=== PATIENT | female | born 1955 | race Caucasian/White ===

== ENCOUNTER 2021-02-04 18:54 | Emergency (ER) | payer MEDICARE, OTHER ==
[~2021-02-04] VITALS: Ht 167.6 cm; Wt 110.5 kg
[~2021-02-04 18:54] MED LIST: LISI10TA27 PO; RIVA20TA PO; SIMV40TA PO; SOTA80TA PO
[2021-02-04 20:35] LABS: CLARITY,URINE CLOUDY (Clear); COLOR,URINE RED (Yellow); GLUCOSE, URINE NEGATIVE (Neg); KETONES,URINE NEGATIVE (Neg); PROTEIN,URINE 30 mg/dl (Neg); UA COLLECTION TYPE CLN CATCH MIDSTREAM
[2021-02-04 20:36] LABS: LEUKOCYTE ESTERASE ,URINE NEGATIVE (Neg); NITRITES, URINE NEGATIVE (Neg); OCCULT BLOOD,URINE LARGE (Neg); UROBILINOGEN,URINE 0.2 E.U/dL (0.2-1.0)
[2021-02-04 21:15] LABS: BACTERIA,URINE FEW /HPF (Neg); MUCUS STRANDS NONE SEEN /LPF (Neg); RBC,URINE TNTC /HPF (0-2); SQUAMOUS EPITHELIAL CELL,UR FEW /LPF (FEW); WBC,URINE 0-4 /HPF (0-4)
[2021-02-04 23:23] LABS: PARTIAL THROMBOPLASTIN TIME 26 SECONDS (22-32)
[2021-02-04 23:24] LABS: ALANINE AMINOTRANSFERASE 22 U/L (12-78); ALBUMIN 3.4 G/DL (3.4-5.0); ALBUMIN/GLOBULIN RATIO 0.9 (1.1-1.5); ALKALINE PHOSPHATASE 62 IU/L (46-116); ANION GAP 8 (8-16); ASPARTATE AMINO TRANSFERASE 15 U/L (10-37); BILIRUBIN,TOTAL 0.5 MG/DL (0.1-1.0); BLOOD UREA NITROGEN 11 MG/DL (7-18); BUN/CREATININE RATIO 13.6 (6.6-38.0); CALCIUM 8.5 MG/DL (8.5-10.1); CHLORIDE 110 MMOL/L (99-107); CREATININE 0.81 MG/DL (0.40-0.90); GLUCOSE 94 MG/DL (70-104); POTASSIUM 4.1 MMOL/L (3.5-5.1); SODIUM 147 MMOL/L (135-145); TOTAL CARBON DIOXIDE 28.7 MMOL/L (24-32); eGFR 71 ML/MIN
[2021-02-04 23:27] LABS: HEMOGLOBIN 14.6 g/dl (12.0-16.0); PLATELET COUNT 224 X10'3 (140-440); RED BLOOD COUNT 4.77 X10'6 (4.20-5.60)
[2021-02-04 23:29] LABS: BASOPHILS # (AUTO) 0.1 X10'3 (0-0.2); BASOPHILS % (AUTO) 0.9 % (0-1); EOSINOPHILS # (AUTO) 0.1 X10'3 (0-0.9); EOSINOPHILS % (AUTO) 1.8 % (0-6); HEMATOCRIT 43.4 % (35.0-45.0); LYMPHOCYTES # (AUTO) 2.2 X10'3 (1.1-4.8); LYMPHOCYTES % (AUTO) 29.1 % (21-51); MEAN CORPUSCULAR HEMOGLOBIN 30.7 PG (27.0-31.0); MEAN CORPUSCULAR HGB CONC 33.7 g/dL (33.0-36.5); MEAN PLATELET VOLUME 9.1 FL (7.4-10.4); MONOCYTES # (AUTO) 0.6 X10'3 (0-0.9); MONOCYTES % (AUTO) 7.6 % (2-12); NEUTROPHILS # (AUTO) 4.6 X10'3 (1.8-7.7); NEUTROPHILS % (AUTO) 60.6 % (42-75); WHITE BLOOD COUNT 7.5 X10'3 (4.5-11.0)
[2021-02-04 23:46] VITALS: BP 181/76
== END 2021-02-04 23:47 | disposition home or self-care (01) ==
LOC: ER 18:54
DX: R31.9 Hematuria, unspecified (principal); I48.91 Unspecified atrial fibrillation; E78.00 Pure hypercholesterolemia, unspecified; Z90.49 Acquired absence of other specified parts of digestive tract; Z98.51 Tubal ligation status; Z90.89 Acquired absence of other organs; Z98.890 Other specified postprocedural states; Z88.1 Allergy status to other antibiotic agents; Z88.5 Allergy status to narcotic agent; Z79.899 Other long term (current) drug therapy
CPT/HCPCS: 80053; 81001; 85025; 85610; 85730; 99283

== ENCOUNTER 2022-05-26 22:07 | Inpatient (IN) | payer MEDICARE, OTHER ==
[~2022-05-26] VITALS: Ht 167.6 cm; Wt 98.3 kg
[~2022-05-26 22:07] MED LIST changes: +SIMV-343 PO; -SIMV40TA PO
[2022-05-26 22:27] LABS: EOSINOPHILS # (AUTO) 0.2 X10'3 (0-0.9); MEAN CORPUSCULAR HEMOGLOBIN 30.5 PG (27.0-31.0); MONOCYTES # (AUTO) 0.7 X10'3 (0-0.9); PLATELET COUNT 249 X10'3 (140-440); RED BLOOD COUNT 4.97 X10'6 (4.20-5.60); RED CELL DISTRIBUTION WIDTH 13.2 % (11.5-14.5)
[2022-05-26 22:28] LABS: BASOPHILS # (AUTO) 0.1 X10'3 (0-0.2); BASOPHILS % (AUTO) 1.2 % (0-1); HEMATOCRIT 45.3 % (35.0-45.0); HEMOGLOBIN 15.1 g/dl (12.0-16.0); LYMPHOCYTES # (AUTO) 2.4 X10'3 (1.1-4.8); LYMPHOCYTES % (AUTO) 30.9 % (21-51); MEAN CORPUSCULAR HGB CONC 33.4 g/dL (33.0-36.5); MEAN CORPUSCULAR VOLUME 91.2 FL (78-98); MEAN PLATELET VOLUME 8.1 FL (7.4-10.4); MONOCYTES % (AUTO) 8.9 % (2-12); NEUTROPHILS # (AUTO) 4.5 X10'3 (1.8-7.7); WHITE BLOOD COUNT 7.9 X10'3 (4.5-11.0)
[2022-05-26 22:44] LABS: ALANINE AMINOTRANSFERASE 26 U/L (12-78); ALBUMIN 3.6 G/DL (3.4-5.0); ALKALINE PHOSPHATASE 64 IU/L (46-116); ANION GAP 8 (8-16); ASPARTATE AMINO TRANSFERASE 19 U/L (10-37); BILIRUBIN,TOTAL 0.6 MG/DL (0.1-1.0); BLOOD UREA NITROGEN 11 MG/DL (7-18); BUN/CREATININE RATIO 12.6 (6.6-38.0); CALCIUM 9.2 MG/DL (8.5-10.1); CHLORIDE 103 MMOL/L (99-107); CREATININE 0.87 MG/DL (0.40-0.90); GLUCOSE 113 MG/DL (70-104); MAGNESIUM 1.8 MG/DL (1.5-2.4); POTASSIUM 3.7 MMOL/L (3.5-5.1); SODIUM 142 MMOL/L (135-145); TOTAL CARBON DIOXIDE 31.4 MMOL/L (24-32); TOTAL PROTEIN 7.1 G/DL (6.4-8.2); eGFR 65 ML/MIN
[2022-05-27] VITALS (10 sets, daily range): BP systolic 112–137; BP diastolic 38–64
[2022-05-27] MEDS ORDERED: AMLO-140 PO (00:59)
[2022-05-27] MEDS ORDERED: HYDR25TA4 PO (01:00)
[2022-05-27] MEDS ORDERED: SOTA80TA73 PO ×2 (01:02→16:08)
[2022-05-27] MEDS ORDERED: potassium Cl 40MEQ/1/2NS 520ml 520 ML IV PRN (01:15)
[2022-05-27] MEDS ORDERED: magnesium 4gm in 100ml NS 100 ML IV PRN (01:15)
[2022-05-27] MEDS ORDERED: ondansetron/PF 4mg/2ml inj IV PRN (01:15)
[2022-05-27] MEDS ORDERED: aspirin 325mg tablet PO ONE (01:15)
[2022-05-27] MEDS ORDERED: magnesium Cl slow-release 64mg tablet PO PRN (01:15)
[2022-05-27] MEDS: normal saline 1000ml 1,000 ML IV SCH ×2 (01:15→11:15)
[2022-05-27] MEDS ORDERED: potassium Cl 20 mEq SR tablet PO PRN ×2 (01:15)
[2022-05-27] MEDS ORDERED: acetaminophen 325mg tablet PO PRN ×2 (01:15)
[2022-05-27] MEDS ORDERED: CefTRIAXone 2gm/D5W 50ml BAG 50 ML IV SCH (02:00)
--- NOTE | 2022-05-27 03:13 | NUR ---
Report called to Ophelia on PCU, patient cleared for transport to receiving unit.
--- NOTE | 2022-05-27 03:55 | NUR ---
arrived to [facility] walked from [facility] to bed with assist of one.
[2022-05-27] MEDS ORDERED: AMLO5TAB PO (04:46)
--- NOTE | 2022-05-27 05:00 | NUR ---
Received from ER in stable condition trops low. Pt.is NPO for Lexiscan in am. Peripheral IV SL intact.
--- NOTE | 2022-05-27 06:34 | NUR ---
Patient in room PCU 3012. I have received report from SYLVIA Jacinto and had the opportunity to ask questions and assume patient care.
[2022-05-27] MEDS ORDERED: HYDROchlorothiazide 25mg tablet PO SCH (08:00)
[2022-05-27] MEDS ORDERED: heparin, porcine 5000 units/ml vial SQ SCH (08:00)
[2022-05-27] MEDS ORDERED: lisinopril 10 MG tablet PO SCH (08:00)
[2022-05-27] MEDS ORDERED: sotalol 80mg tablet PO SCH (08:00)
[2022-05-27] MEDS ORDERED: regadenoson 0.4mg/5ml syringe IV PRN (11:00)
[2022-05-27] MEDS ORDERED: nitroGLYCERIN 0.4mg SUBLingual tab SL PRN (11:00)
[2022-05-27] MEDS ORDERED: metoprolol tartrate 1mg/ml inj IV PRN (11:00)
[2022-05-27] MEDS ORDERED: aminophylline 250mg/10ml inj. IV PRN (11:00)
--- NOTE | 2022-05-27 12:24 | NUR ---
PAGER ID: [phone] MESSAGE: Loyda [id number] RE: Jeanie Spicer room 3012C - Pt back from [facility]. Can she eat now?
--- NOTE | 2022-05-27 12:34 | NUR ---
Notified CM that PT recommends 4WW for discharge. PT will also put that in their notes.
[2022-05-27] MEDS ORDERED: cephalexin 500mg capsule PO SCH (13:00)
--- NOTE | 2022-05-27 15:06 | NUR ---
PAGER ID: [phone] MESSAGE: [id number] [phone] RE: Jeanie Spicer room 301 - Ghada scan resulted. Patient says she needs to eat and can't wait any longer
[2022-05-27] MEDS ORDERED: AMLO10TA53 PO (16:08)
[2022-05-27] MEDS ORDERED: CEPH-585 PO (16:08)
--- NOTE | 2022-05-27 16:38 | NUR ---
PAGER ID: [phone] MESSAGE: Loyda [phone] RE: Jeanie Spicer room 3012CD - takes 40mg Sotalol BID
--- NOTE | 2022-05-27 17:50 | NUR ---
Patient left at 1750 with instructions, verbalizing understanding of instructions, in wheelchair accompanied by nursing staff and family going home via private vehicle. All lines and tubes including PIV with cannula intact and tele monitor have been removed. Education has been provided at bedside and all questions have been answered. Patient was educated that she needs to follow up with Dr. Vazquez her clinical research scientist. Patient verbalizing understanding of instructions. Patient is stable and appropriate for discharge.
[2022-05-27] MEDS ORDERED: rivaroxaban 20mg tablet PO SCH (18:00)
[2022-05-27] MEDS ORDERED: amLODIPine 5mg tablet PO SCH (21:00)
[2022-05-27] MEDS ORDERED: temazepam 15mg capsule PO PRN (21:00)
[2022-05-27] MEDS ORDERED: atorvastatin 20mg tablet PO SCH (21:00)
== END 2022-05-27 17:47 | disposition home or self-care (01) | DRG 311 ==
LOC: ER 22:09 → ED HOLD 05-27 01:21 → UNDOADMIN 05-27 02:16 → ED HOLD 05-27 04:02 → PCU 3S 05-27 04:02 → UNDODISIN 05-27 17:47
PROVIDERS: ADMIT Internal Medicine; ATTEND Family Medicine
PROC: 4A02XM4 Measurement of Cardiac Total Activity, External Approach (ICD-10-PCS; principal; 2022-05-27)
PROC: 3E033HZ Introduction of Radioactive Substance into Peripheral Vein, Percutaneous Approach (ICD-10-PCS; 2022-05-27)
DX: I20.9 Angina pectoris, unspecified (principal); I48.20 Chronic atrial fibrillation, unspecified; E78.00 Pure hypercholesterolemia, unspecified; F17.210 Nicotine dependence, cigarettes, uncomplicated; G47.33 Obstructive sleep apnea (adult) (pediatric); R05.3 Chronic cough; I88.9 Nonspecific lymphadenitis, unspecified; E66.9 Obesity, unspecified; I10 Essential (primary) hypertension; T46.4X5A Adverse effect of angiotensin-converting-enzyme inhibitors, initial encounter; Y92.89 Other specified places as the place of occurrence of the external cause; Z79.01 Long term (current) use of anticoagulants; Z79.899 Other long term (current) drug therapy; Z88.5 Allergy status to narcotic agent; Z88.8 Allergy status to other drugs, medicaments and biological substances; Z90.49 Acquired absence of other specified parts of digestive tract; Z98.51 Tubal ligation status; Z68.35 Body mass index [BMI] 35.0-35.9, adult; Z71.6 Tobacco abuse counseling
CPT/HCPCS: 36415; 78452; 80053; 83605; 83735; 83880; 84439; 84443; 84484; 85025; 87040; 87081; 93005; 93017; 93306; 99285; A6449; A9500; G0378; J0696; J2785; J7030

== ENCOUNTER 2023-05-15 17:53 | Inpatient (IN) | payer MEDICARE, OTHER ==
[~2023-05-15] VITALS: Ht 165.1 cm; Wt 116.4 kg
[~2023-05-15 17:53] MED LIST changes: +AMLO10TA53 PO; +CEPH-585 PO; -LISI10TA27 PO; -SOTA80TA PO; +SOTA80TA73 PO
[2023-05-15 18:27] LABS: BASOPHILS # (AUTO) 0.1 X10'3 (0-0.2); BASOPHILS % (AUTO) 1.2 % (0-1); EOSINOPHILS # (AUTO) 0.1 X10'3 (0-0.9); EOSINOPHILS % (AUTO) 1.3 % (0-6); HEMATOCRIT 39.2 % (35.0-45.0); LYMPHOCYTES # (AUTO) 1.1 X10'3 (1.1-4.8); LYMPHOCYTES % (AUTO) 18.1 % (21-51); MEAN CORPUSCULAR HEMOGLOBIN 29.5 PG (27.0-31.0); MEAN CORPUSCULAR HGB CONC 33.2 g/dL (33.0-36.5); MEAN CORPUSCULAR VOLUME 88.7 FL (78-98); MEAN PLATELET VOLUME 9.3 FL (7.4-10.4); MONOCYTES # (AUTO) 0.8 X10'3 (0-0.9); MONOCYTES % (AUTO) 12.2 % (2-12); NEUTROPHILS # (AUTO) 4.3 X10'3 (1.8-7.7); NEUTROPHILS % (AUTO) 67.2 % (42-75); PLATELET COUNT 215 X10'3 (140-440); RED BLOOD COUNT 4.42 X10'6 (4.20-5.60); WHITE BLOOD COUNT 6.3 X10'3 (4.5-11.0)
[2023-05-15 18:47] LABS: ALANINE AMINOTRANSFERASE 20 U/L (12-78); ALBUMIN 3.3 G/DL (3.4-5.0); ALKALINE PHOSPHATASE 53 IU/L (46-116); ANION GAP 9 (8-16); ASPARTATE AMINO TRANSFERASE 13 U/L (10-37); BILIRUBIN,TOTAL 0.6 MG/DL (0.1-1.0); BLOOD UREA NITROGEN 6 MG/DL (7-18); BUN/CREATININE RATIO 7.3 (10.0-20.0); CHLORIDE 106 MMOL/L (99-107); CREATININE 0.82 MG/DL (0.40-0.90); GLUCOSE 127 MG/DL (70-104); POTASSIUM 3.5 MMOL/L (3.5-5.1); SODIUM 142 MMOL/L (135-145); TOTAL CARBON DIOXIDE 27.4 MMOL/L (24-32); TOTAL PROTEIN 6.7 G/DL (6.4-8.2); eCRCL 60 ML/MIN; eGFR 70 ML/MIN
[2023-05-15 18:54] LABS: PRO BRAIN NATRIURETIC PEPTIDE 208 PG/ML (0-125)
[2023-05-15] MEDS: methylPREDNISolone sod succ 125mg/2ml vial IV ONE (20:08)
[2023-05-15] MEDS ORDERED: magnesium 4gm in 100ml NS 100 ML IV PRN (20:35)
[2023-05-15] MEDS ORDERED: magnesium 2GM in 50ml NS 50 ML IV PRN (20:35)
[2023-05-15] MEDS ORDERED: potassium Cl 40MEQ/1/2NS 520ml 520 ML IV PRN (20:35)
[2023-05-15] MEDS ORDERED: magnesium hydroxide 30ml (MOM) UD suspension PO PRN (20:35)
[2023-05-15] MEDS ORDERED: mag hydrox/Alum hydrox/simeth 30ml oral suspension PO PRN (20:35)
[2023-05-15] MEDS ORDERED: acetaminophen 325mg tablet PO PRN (20:35)
[2023-05-15] MEDS ORDERED: magnesium Cl slow-release 64mg tablet PO PRN (20:35)
[2023-05-15] MEDS ORDERED: ondansetron/PF 4mg/2ml inj IV PRN (20:35)
[2023-05-15] MEDS ORDERED: potassium Cl 20 mEq SR tablet PO PRN ×2 (20:35)
[2023-05-15 20:41] LABS: MONOTEST NEGATIVE (Neg)
[2023-05-15] MEDS: ipratropium/albuterol 3ml nebule NEB ONE (21:29)
[2023-05-15 21:39] VITALS: PULSE 78; RESP 16; O2SAT 94
[2023-05-15 21:47] VITALS: PULSE 74; RESP 16; O2SAT 92
[2023-05-15 23:47] VITALS: PULSE 76; RESP 20; O2SAT 90
[2023-05-15] MEDS: ipratropium/albuterol 3ml nebule NEB SCH (23:47)
[2023-05-16] VITALS (19 sets, daily range): BP systolic 130–146; BP diastolic 60–85; PULSE 61–102; RESP 16–26; TEMP 97–98.2; O2SAT 91–95
[2023-05-16] MEDS: docusate sod 100mg capsule PO SCH (07:10)
[2023-05-16] MEDS: heparin, porcine 5000 units/ml vial SQ SCH (07:11)
[2023-05-16] MEDS: methylPREDNISolone sod succ/PF 40mg inj. IV SCH ×2 (07:17→20:31)
[2023-05-16] MEDS: K and/or MAG REPLACEMENT MC SCH (08:00)
[2023-05-16 08:19] LABS: EOSINOPHILS % (AUTO) 0 % (0-6); HEMATOCRIT 39.8 % (35.0-45.0); HEMOGLOBIN 13.1 g/dl (12.0-16.0); LYMPHOCYTES # (AUTO) 0.7 X10'3 (1.1-4.8); LYMPHOCYTES % (AUTO) 19.5 % (21-51); MEAN CORPUSCULAR HEMOGLOBIN 29.7 PG (27.0-31.0); MEAN CORPUSCULAR VOLUME 90.1 FL (78-98); MEAN PLATELET VOLUME 9.4 FL (7.4-10.4); MONOCYTES % (AUTO) 1.3 % (2-12); NEUTROPHILS # (AUTO) 2.9 X10'3 (1.8-7.7); NEUTROPHILS % (AUTO) 78.2 % (42-75); PLATELET COUNT 218 X10'3 (140-440); RED BLOOD COUNT 4.42 X10'6 (4.20-5.60); RED CELL DISTRIBUTION WIDTH 15.1 % (11.5-14.5); WHITE BLOOD COUNT 3.8 X10'3 (4.5-11.0)
[2023-05-16 08:39] LABS: ALANINE AMINOTRANSFERASE 19 U/L (12-78); ALBUMIN 3.2 G/DL (3.4-5.0); ALBUMIN/GLOBULIN RATIO 0.7 (1.1-1.5); ALKALINE PHOSPHATASE 54 IU/L (46-116); ANION GAP 11 (8-16); ASPARTATE AMINO TRANSFERASE 15 U/L (10-37); BILIRUBIN,TOTAL 0.4 MG/DL (0.1-1.0); BLOOD UREA NITROGEN 10 MG/DL (7-18); BUN/CREATININE RATIO 10.6 (10.0-20.0); CALCIUM 8.1 MG/DL (8.5-10.1); CHLORIDE 104 MMOL/L (99-107); CREATININE 0.94 MG/DL (0.40-0.90); GLUCOSE 188 MG/DL (70-104); POTASSIUM 3.8 MMOL/L (3.5-5.1); SODIUM 139 MMOL/L (135-145); TOTAL CARBON DIOXIDE 23.8 MMOL/L (24-32); TOTAL PROTEIN 7.6 G/DL (6.4-8.2); eCRCL 52 ML/MIN; eGFR 59 ML/MIN
[2023-05-16] MEDS: levoFLOXACIN-Levaquin 500mg/D5 100 ML IV SCH (10:41)
[2023-05-16] MEDS ORDERED: ipratropium/albuterol 3ml nebule NEB PRN (17:40)
[2023-05-16] MEDS: furosemide 40mg/4ml inj IV SCH (17:59)
[2023-05-16] MEDS: rivaroxaban 20mg tablet PO SCH (17:59)
[2023-05-16] MEDS ORDERED: LISI20TA28 PO (18:15)
[2023-05-16] MEDS ORDERED: HYDR25TA90 PO (18:15)
[2023-05-16] MEDS ORDERED: methylPREDNISolone sod succ/PF 40mg inj. IV SCH (20:00)
[2023-05-16] MEDS: sotalol 80mg tablet PO SCH (20:31)
[2023-05-16] MEDS: atorvastatin 20mg tablet PO SCH (20:31)
[2023-05-17] VITALS (22 sets, daily range): BP systolic 113–156; BP diastolic 42–69; PULSE 61–82; RESP 14–23; TEMP 97.3–98.8; O2SAT 84–98
[2023-05-17] MEDS: amLODIPine 5mg tablet PO SCH (07:28)
[2023-05-17 07:54] LABS: BASOPHILS % (AUTO) 0.3 % (0-1); EOSINOPHILS % (AUTO) 0 % (0-6); HEMATOCRIT 38.5 % (35.0-45.0); HEMOGLOBIN 12.6 g/dl (12.0-16.0); LYMPHOCYTES % (AUTO) 8.4 % (21-51); MEAN CORPUSCULAR HEMOGLOBIN 29.2 PG (27.0-31.0); MEAN CORPUSCULAR HGB CONC 32.7 g/dL (33.0-36.5); MEAN CORPUSCULAR VOLUME 89.3 FL (78-98); MEAN PLATELET VOLUME 9.5 FL (7.4-10.4); MONOCYTES # (AUTO) 0.4 X10'3 (0-0.9); MONOCYTES % (AUTO) 3.2 % (2-12); NEUTROPHILS % (AUTO) 88.1 % (42-75); PLATELET COUNT 237 X10'3 (140-440); RED BLOOD COUNT 4.31 X10'6 (4.20-5.60); RED CELL DISTRIBUTION WIDTH 15.1 % (11.5-14.5); WHITE BLOOD COUNT 11.3 X10'3 (4.5-11.0)
[2023-05-17 08:03] LABS: ALANINE AMINOTRANSFERASE 17 U/L (12-78); ALBUMIN/GLOBULIN RATIO 0.9 (1.1-1.5); ALKALINE PHOSPHATASE 48 IU/L (46-116); ANION GAP 7 (8-16); ASPARTATE AMINO TRANSFERASE 16 U/L (10-37); BILIRUBIN,TOTAL 0.3 MG/DL (0.1-1.0); BLOOD UREA NITROGEN 16 MG/DL (7-18); BUN/CREATININE RATIO 19.3 (10.0-20.0); CALCIUM 8.1 MG/DL (8.5-10.1); CHLORIDE 104 MMOL/L (99-107); CREATININE 0.83 MG/DL (0.40-0.90); GLUCOSE 134 MG/DL (70-104); POTASSIUM 4.2 MMOL/L (3.5-5.1); SODIUM 139 MMOL/L (135-145); TOTAL CARBON DIOXIDE 28.5 MMOL/L (24-32); TOTAL PROTEIN 6.5 G/DL (6.4-8.2); eCRCL 59 ML/MIN; eGFR 69 ML/MIN
[2023-05-17] MEDS ORDERED: iohexol 300mg/ml 100ml inj. ONE (12:22)
[2023-05-18] VITALS (9 sets, daily range): BP systolic 116–128; BP diastolic 52; PULSE 60–74; RESP 16–20; TEMP 96.9; O2SAT 93–94
[2023-05-18 08:17] LABS: BASOPHILS # (AUTO) 0.1 X10'3 (0-0.2); BASOPHILS % (AUTO) 0.5 % (0-1); EOSINOPHILS % (AUTO) 0 % (0-6); HEMATOCRIT 39.7 % (35.0-45.0); HEMOGLOBIN 13.1 g/dl (12.0-16.0); LYMPHOCYTES % (AUTO) 7.7 % (21-51); MEAN CORPUSCULAR HEMOGLOBIN 29.4 PG (27.0-31.0); MEAN CORPUSCULAR VOLUME 89.1 FL (78-98); MONOCYTES # (AUTO) 0.3 X10'3 (0-0.9); MONOCYTES % (AUTO) 2.5 % (2-12); NEUTROPHILS # (AUTO) 11.2 X10'3 (1.8-7.7); NEUTROPHILS % (AUTO) 89.3 % (42-75); PLATELET COUNT 262 X10'3 (140-440); RED BLOOD COUNT 4.45 X10'6 (4.20-5.60); RED CELL DISTRIBUTION WIDTH 14.9 % (11.5-14.5); WHITE BLOOD COUNT 12.6 X10'3 (4.5-11.0)
[2023-05-18 10:40] LABS: ALANINE AMINOTRANSFERASE 21 U/L (12-78); ALBUMIN 3.3 G/DL (3.4-5.0); ALBUMIN/GLOBULIN RATIO 0.9 (1.1-1.5); ALKALINE PHOSPHATASE 49 IU/L (46-116); ANION GAP 10 (8-16); ASPARTATE AMINO TRANSFERASE 15 U/L (10-37); BILIRUBIN,TOTAL 0.3 MG/DL (0.1-1.0); BLOOD UREA NITROGEN 25 MG/DL (7-18); BUN/CREATININE RATIO 26.3 (10.0-20.0); CALCIUM 8.6 MG/DL (8.5-10.1); CHLORIDE 101 MMOL/L (99-107); CREATININE 0.95 MG/DL (0.40-0.90); GLUCOSE 146 MG/DL (70-104); POTASSIUM 3.8 MMOL/L (3.5-5.1); SODIUM 140 MMOL/L (135-145); TOTAL CARBON DIOXIDE 28.9 MMOL/L (24-32); TOTAL PROTEIN 6.9 G/DL (6.4-8.2); eCRCL 52 ML/MIN; eGFR 59 ML/MIN
[2023-05-18] MEDS ORDERED: PRED10TA23 PO (11:21)
[2023-05-18] MEDS ORDERED: SOTA80TA73 PO (11:21)
[2023-05-18] MEDS ORDERED: SIMV-343 PO (11:21)
[2023-05-18] MEDS ORDERED: FURO-150 PO (11:21)
[2023-05-18] MEDS ORDERED: HYDR25TA90 PO (11:21)
[2023-05-18] MEDS ORDERED: RIVA20TA PO (11:21)
[2023-05-18] MEDS ORDERED: LEVO-65 PO (11:21)
[2023-05-18] MEDS ORDERED: LISI20TA28 PO (11:21)
== END 2023-05-18 14:36 | disposition home or self-care (01) | DRG 291 ==
LOC: ER 17:53 → ED HOLD 20:42 → EDBEDREQ 05-16 05:29 → ORTHO 4S 05-16 12:27
PROVIDERS: ADMIT Internal Medicine; ATTEND Internal Medicine
PROC: 5A09357 Assistance with Respiratory Ventilation, Less than 24 Consecutive Hours, Continuous Positive Airway Pressure (ICD-10-PCS; 2023-05-16)
PROC: BW2F1ZZ Computerized Tomography (CT Scan) of Neck using Low Osmolar Contrast (ICD-10-PCS; principal; 2023-05-17)
PROC: 5A09357 Assistance with Respiratory Ventilation, Less than 24 Consecutive Hours, Continuous Positive Airway Pressure (ICD-10-PCS; 2023-05-17)
DX: I11.0 Hypertensive heart disease with heart failure (principal); I50.23 Acute on chronic systolic (congestive) heart failure; J96.01 Acute respiratory failure with hypoxia; J44.1 Chronic obstructive pulmonary disease with (acute) exacerbation; E78.00 Pure hypercholesterolemia, unspecified; Z20.822 Contact with and (suspected) exposure to COVID-19; G47.30 Sleep apnea, unspecified; R22.1 Localized swelling, mass and lump, neck; Z66 Do not resuscitate; I48.91 Unspecified atrial fibrillation; Z88.1 Allergy status to other antibiotic agents; Z79.899 Other long term (current) drug therapy; Z88.5 Allergy status to narcotic agent; Z79.01 Long term (current) use of anticoagulants; Z90.49 Acquired absence of other specified parts of digestive tract; Z98.51 Tubal ligation status; Z87.891 Personal history of nicotine dependence; Z85.51 Personal history of malignant neoplasm of bladder
CPT/HCPCS: 36415; 70491; 71045; 80053; 83880; 84145; 84484; 85025; 86308; 87040; 87081; 87502; 87503; 87634; 87811; 93005; 94640; 94660; 94664; 94760; 96374; 99285; G0378; J1644; J1940; J1956; J2920; J2930; J3490; Q9967